=== PATIENT | female | born 1980 | race African-American/Black ===

== ENCOUNTER 2016-12-26 22:35 | Emergency (ER) | payer SELFPAY ==
[~2016-12-26] VITALS: Ht 167.6 cm; Wt 63.5 kg
[2016-12-26 23:43] LABS: Urine Bilirubin Negative (Negative); Urine Color Yellow (Yellow); Urine Glucose Normal (Normal); Urine Mucus FEW (None Seen); Urine Nitrite Negative (Negative); Urine RBC 1 /hpf (0 - 4); Urine pH 5.5 (5.0-8.0)
[2016-12-26] MEDS ORDERED: LORazepam 2MG/ML-1ML VIAL IV ONE (23:45)
[2016-12-26] MEDS ORDERED: LORazepam 2MG/ML-1ML VIAL IV PRN (23:45)
[2016-12-26 23:46] LABS: Urine Blood 1+ /uL (Negative); Urine Ketone 4+ (Negative); Urine Squamous Epithelial Cell MODERATE /hpf (<5)
[2016-12-26 23:49] LABS: Basophils # (auto) 0 uL; Basophils % (auto) 0.4 % (0.0-2.0); Eosinophils # (auto) 0 uL; Eosinophils % (auto) 0.5 % (0.0-7.0); Hematocrit 36.2 % (36.0-46.0); Hemoglobin 12.1 g/dL (12.2-16.2); Lymphocytes # (auto) 2.6 uL; Mean Corpuscular Hemoglobin 29.1 pg (28.0-32.0); Mean Corpuscular Hgb Conc. 33.3 g/dL (32.0-36.0); Mean Corpuscular Volume 87.4 fL (80.0-100.0); Mean Platelet Volume 8.3 fL (7.4-10.4); Monocytes # (auto) 0.9 uL; Monocytes % (auto) 9.9 % (0.0-12.0); Neutrophils # (auto) 5.9 uL; Neutrophils % (auto) 61.2 % (37.0-80.0); Platelet Count (auto) 372 10^3/uL (140-450); Red Cell Distribution Width 14.9 % (11.6-16.0); White Blood Cell 9.4 10^3/uL (4.4-10.8)
[2016-12-26 23:56] LABS: Albumin 3.8 g/dL (3.4-5.0); BUN/Creatinine Ratio 13.6; Calcium 8.5 mg/dL (8.5-10.1); Potassium 3.5 mmol/L (3.5-5.1)
[2016-12-26 23:59] LABS: Bilirubin, Total 0.3 mg/dL (0.2-1.0); Total Protein 8.2 g/dL (6.4-8.2)
[2016-12-27] MEDS ORDERED: SODIUM CHLORIDE 0.9% 1,000 ML IV ONE (00:45)
[2016-12-27 10:34] VITALS: BP 144/69
== END 2016-12-27 12:46 | disposition home or self-care (01) ==
LOC: ER 22:42
DX: T65.91XA Toxic effect of unspecified substance, accidental (unintentional), initial encounter (principal); G92 Toxic encephalopathy; F15.10 Other stimulant abuse, uncomplicated; F12.10 Cannabis abuse, uncomplicated; F10.10 Alcohol abuse, uncomplicated; Z59.0 Homelessness
CPT/HCPCS: 36415; 71010; 80053; 80307; 81001; 81025; 85025; 96361; 96374; 99285; J2060

== ENCOUNTER 2016-12-27 14:51 | Emergency (ER) | payer SELFPAY ==
[~2016-12-27] VITALS: Ht 162.6 cm; Wt 68.0 kg
[2016-12-27 15:10] VITALS: BP 110/51
== END 2016-12-27 16:33 | disposition left against medical advice (07) ==
LOC: EDBD 14:51 → ER 15:07
DX: R51 Headache (principal); Z53.21 Procedure and treatment not carried out due to patient leaving prior to being seen by health care provider